=== PATIENT | male | born 1975 | race Two or more races ===

== ENCOUNTER 2017-05-21 09:32 | Emergency (ER) | payer MEDICARE, OTHER ==
[~2017-05-21] VITALS: Ht 182.9 cm; Wt 96.6 kg
[2017-05-21] MEDS ORDERED: LANTUS SOL100 UNIT/1 SUBQ (09:51)
[2017-05-21] MEDS ORDERED: FLUCONAZOLE100 MG ORAL (09:51)
[2017-05-21] MEDS ORDERED: NORCO 10-325 T1 EACH ORAL (09:51)
[2017-05-21] MEDS ORDERED: MIRALAX17 G2 ORAL (09:51)
[2017-05-21] MEDS ORDERED: BACTRIM-DS1 EA ORAL (09:51)
[2017-05-21] MEDS ORDERED: AUGMENTIN 875-1 EAC1 ORAL (09:51)
[2017-05-21] MEDS ORDERED: NOVOLOG100 UNITS1 (09:51)
[2017-05-21 10:16] LABS: BASOPHILS % (AUTO) 1.2 % (0.0-2.0); EOSINOPHILS % (AUTO) 2.1 % (0.0-3.0); HEMATOCRIT 42.1 % (42.0-52.0); LYMPHOCYTES % (AUTO) 31.7 % (20.0-45.0); MEAN CORPUSCULAR VOLUME 85 FL (80-99); MONOCYTES % (AUTO) 7.3 % (1.0-10.0); NEUTROPHILS % (AUTO) 57.8 % (45.0-75.0); PLATELET COUNT 586 K/UL (150-450); RED BLOOD COUNT 4.95 M/UL (4.70-6.10); RED CELL DISTRIBUTION WIDTH 14.4 % (11.6-14.8)
[2017-05-21 10:24] LABS: ANION GAP 8 mmol/L (5-15); BLOOD UREA NITROGEN 17 mg/dL (7-18); CALCIUM 8.9 MG/DL (8.5-10.1); CARBON DIOXIDE 25 MMOL/L (21-32); CHLORIDE 98 MMOL/L (98-107); POTASSIUM 4.5 MMOL/L (3.5-5.1); SODIUM 131 MMOL/L (136-145)
[2017-05-21 10:28] LABS: ALANINE AMINOTRANSFERASE 42 U/L (12-78); ALBUMIN 2.9 G/DL (3.4-5.0); ALBUMIN/GLOBULIN RATIO 0.5 (1.0-2.7); ALKALINE PHOSPHATASE 82 U/L (46-116); ASPARTATE AMINO TRANSFERASE 23 U/L (15-37); BILIRUBIN,TOTAL 0.1 MG/DL (0.2-1.0)
[2017-05-21 10:33] LABS: APPEARANCE,URINE CLEAR; BILIRUBIN, URINE NEGATIVE (NEGATIVE); COLOR,URINE PALE YELLOW; GLUCOSE, URINE (UA) 1+ (NEGATIVE); KETONES,URINE NEGATIVE (NEGATIVE); LEUKOCYTE ESTERASE ,URINE NEGATIVE (NEGATIVE); NITRITE,URINE NEGATIVE (NEGATIVE); PH,URINE 6 (4.5-8.0); PROTEIN,URINE 3+ (NEGATIVE); UROBILINOGEN,URINE NORMAL MG/DL (0.0-1.0)
[2017-05-21 10:48] VITALS: BP 138/87
[2017-05-21] MEDS ORDERED: ONDANSETRON ODT4 MG ORAL (10:49)
--- NOTE | 2017-05-21 11:09 | Emergency Room Report ---
History of Present Illness General Chief Complaint: General Complaint Source: Patient Present Illness HPI 41-year-old male, history of scrotal abscess that was drained, now with suprapubic cath, placed one week ago, presenting with nausea, and redness around his suprapubic catheter. States that he has a followup visit in one week. Has nausea no vomiting. Has still been able to eat and drink. Staying at transitional housing after being hospitalized. No diarrhea. No abdominal pain. Allergies: Coded Allergies: No Known Allergies (Unverified , 05/21/17) Patient History Past Medical History: see triage record Past Surgical History: none Pertinent Family History: none Reviewed Nursing Documentation: PMH: Agreed, PSxH: Agreed Nursing Documentation-PMH Hx Diabetes: Yes Review of Systems All Other Systems: negative except mentioned in HPI Physical Exam Vital Signs Date Time Temp Pulse Resp B/P (MAP) Pulse Ox O2 Delivery O2 Flow Rate FiO2 05/21/17 09:36 98.0 120 18 141/80 97 Room Air 98.1 Sp02 EP Interpretation: reviewed, normal General Appearance: normal inspection, well appearing, no apparent distress, alert, GCS 15, non-toxic Head: normocephalic, atraumatic Eyes: bilateral eye normal inspection, bilateral eye PERRL, bilateral eye EOMI ENT: normal ENT inspection, normal pharynx, normal voice, moist mucus membranes Neck: normal inspection, full range of motion, supple Respiratory: normal inspection, lungs clear, normal breath sounds, no respiratory distress, no retraction, no wheezing, speaking full sentences, chest symmetrical Cardiovascular #1: normal inspection, regular rate, rhythm, normal capillary refill Cardiovascular #2: 2+ radial (R), 2+ radial (L) Gastrointestinal: soft, non-distended, no guarding, other - suprapubic cath stiched in place, not obstructed, clear urine, mild redness around site no purulent drainage. nontender abdomen throughout Musculoskeletal: normal inspection, back normal, normal range of motion, non- tender Neurologic: normal inspection, alert, oriented x3, responsive, motor strength/ tone normal, sensory intact, normal gait, speech normal Psychiatric: normal inspection, judgement/insight normal, memory normal Skin: normal inspection, normal color, no rash, warm/dry, well hydrated, normal turgor Medical Decision Making Diagnostic Impression: Primary Impression: Suprapubic catheter Additional Impression: Nausea ER Course 41-year-old male with nausea DDX: Gastroenteritis, UTI, DKA The patient's abdomen is very soft nontender at this time, suprapubic catheter site does not appear infected Plan: Obtain labs, ua, IV fluids ER course: Patient has remained stable during ED stay. Received Zofran and IV fluids. Repeat abdominal exam is nontender. She appears nontoxic. His vital signs are normal Patient's UA is positive, already on antibiotics Disposition: Patient is to be discharged to home. Patient is instructed to follow up with urologist within 3 days. Strict return precautions discussed with patient such as fever, chills, worsening/severe pain, chest pain, SOB, nausea, vomiting, which may indicate severe illness. Patient verbalizes understanding and agrees with plan. Please note that this Emergency Department Report was dictated using [employer] plasterer technology software, occasionally this can lead to erroneous entry secondary to interpretation by the dictation equipment Last Vital Signs Date Time Temp Pulse Resp B/P (MAP) Pulse Ox O2 Delivery O2 Flow Rate FiO2 05/21/17 10:48 97 25 138/87 95 Room Air 05/21/17 09:36 98.0 98.1 Disposition: HOME, SELF-CARE Condition: Improved Scripts Ondansetron Odt* (ZOFRAN ODT*) 4 Mg Tab.rapdis 4 MG ORAL EVERY 8 HOURS, #10 TAB 0 Refills Prov: Camille Mcclure M.D. 05/21/17 Referrals: NON PHYSICIAN (PCP) Patient Instructions: Nausea, Adult, [id number], Suprapubic Catheter Home Guide Additional Instructions: PLEASE FOLLOW UP WITH YOUR UROLOGIST IN 1 WEEK WITHOUT FAIL Camille Mcclure M.D. May 21, 2017 11:09
[2017-05-21 11:21] VITALS: BP 143/92
== END 2017-05-21 11:18 | disposition home or self-care (01) ==
LOC: EDBD 09:32 → EMR 09:35
DX: R11.0 Nausea (principal); E11.9 Type 2 diabetes mellitus without complications; Z46.6 Encounter for fitting and adjustment of urinary device
CPT/HCPCS: 36415; 80053; 81003; 83690; 85025; 96374; 96375; 99284; J2405

== ENCOUNTER 2017-06-05 12:45 | Emergency (ER) | payer MEDICARE, OTHER ==
[~2017-06-05] VITALS: Ht 182.9 cm; Wt 105.2 kg
[~2017-06-05 12:45] MED LIST: AUGMENTIN 875-1 EAC1 ORAL; BACTRIM-DS1 EA ORAL; FLUCONAZOLE100 MG ORAL; LANTUS SOL100 UNIT/1 SUBQ; MIRALAX17 G2 ORAL; NORCO 10-325 T1 EACH ORAL; NOVOLOG100 UNITS1; ONDANSETRON ODT4 MG ORAL
[2017-06-05 13:07] VITALS: BP 139/81
[2017-06-05] MEDS ORDERED: Heparin Sod 1000 units/ml 10ml INJ ONE (13:15)
[2017-06-05] MEDS ORDERED: Lidocaine 1% MPF 10mg/ml 5ml INJ ONE (13:15)
--- NOTE | 2017-06-05 14:15 | Emergency Room Report ---
History of Present Illness General Chief Complaint: General Complaint Source: Patient, Medical Record, EMS Present Illness HPI 41 yo male patient presents to ER BIB ambulance for PICC line placement. Patient was sent from [facility] for placement. Patient being treated for UTI. Patient reports he was provided with pain medication prior to leaving [facility]. Patient denies chest pain, SOB, abdominal pain. Patient has history of diverticulum of bladder, major depressive disorder, spina bifida, and Type 1 diabetes. Allergies: Coded Allergies: No Known Allergies (Unverified , 05/21/17) Patient History Past Medical History: see triage record Reviewed Nursing Documentation: PMH: Agreed, PSxH: Agreed Nursing Documentation-PMH Past Medical History: No History, Except For Hx Diabetes: Yes Review of Systems All Other Systems: negative except mentioned in HPI Physical Exam Vital Signs Date Time Temp Pulse Resp B/P (MAP) Pulse Ox O2 Delivery O2 Flow Rate FiO2 06/05/17 12:57 97.7 108 18 139/81 94 Room Air 97.7 Sp02 EP Interpretation: reviewed, normal General Appearance: well appearing, no apparent distress, alert, GCS 15 Head: normocephalic, atraumatic Eyes: bilateral eye normal inspection, bilateral eye PERRL ENT: hearing grossly normal, normal pharynx, no angioedema, normal voice, uvula midline, moist mucus membranes Neck: full range of motion Respiratory: lungs clear, normal breath sounds, no rhonchi, no respiratory distress, no accessory muscle use, no wheezing, speaking full sentences Cardiovascular #1: regular rate, rhythm Gastrointestinal: non tender, soft, no mass, non-distended, no guarding, no rebound Genitourinary: no CVA tenderness, other - lopez catheter Musculoskeletal: back normal, digits/nails normal, gait/station normal, normal range of motion, non-tender Neurologic: alert, oriented x3, responsive, motor strength/tone normal, sensory intact Psychiatric: mood/affect normal Skin: no rash Lymphatic: no adenopathy Medical Decision Making PA Attestation Dr. Honeycutt is my supervising Physician whom patient management has been discussed with. Diagnostic Impression: Primary Impression: Needs peripherally inserted central catheter (PICC) ER Course Pt. presents to the ED BIB needing PICC line. Patient being treated for UTI at [facility]. Vital signs: are WNL, pt. is afebrile Dr. Honeycutt ordered PICC line and meds for procedure. PE benign. Patient taken by Radiology. PICC line placed in left arm. Patient tolerated procedure well. Patient stable for discharge to care center. Ambulance called to transport patient. DISCHARGE: Patient discharged to care center. Patient is resting comfortably, in no acute distress, nontoxic appearing, talking without difficulty. Will provide with patient care instructions and any necessary prescriptions. Care plan and follow-up instructions provided. Patient questions asked and answered. ER precautions given. Patient instructed to return to ER immediately for any new or worsening of symptoms including but not limited to increasing SOB, persistent fever. Last Vital Signs Date Time Temp Pulse Resp B/P (MAP) Pulse Ox O2 Delivery O2 Flow Rate FiO2 06/05/17 13:07 97.7 18 139/81 94 Room Air 97.7 06/05/17 12:57 108 Disposition: ASSISTED LIVING Condition: Stable Patient Instructions: PICC Insertion, Care After Additional Instructions: Followup with primary care provider for treatment of UTI. Take medications as directed. Patient questions asked and answered. ER precautions given, patient instructed to return to ER immediately for any new or worsening of symptoms. Ramiro Stiles Jun 05, 2017 14:15
[2017-06-05] MEDS ORDERED: Heparin 2000 units/Ns 1000ml IV ONE (14:45)
--- NOTE | 2017-06-05 15:39 | Diagnostic Imaging Report ---
Indication: exterminator venous access Findings: After the indications, procedure, risks, complications, and alternatives of the procedure were explained, written informed consent was obtained. The left upper extremity was prepped with alcohol. All elements of maximal sterile barrier technique were followed including usage of a cap, mask, sterile gown, sterile gloves, hand hygiene and a large sterile sheet. Sonographic evaluation of the upper extremity was performed demonstrating a patent and compressible basilic vein. Access was obtained under real-time ultrasound guidance (with utilization of sterile gel and sterile probe cover) and digital image was saved and archived. An .018 wire was introduced. Needle exchanged for a 5 Romanian peel-away sheath. Measurements were obtained. A 5 Romanian dual-lumen Power PICC line catheter was cut to 49 cm and introduced over the wire. Peel-away sheath and wire were removed.Catheter was secured to the skin using 2-0 Prolene suture. Both ports aspirate and flush easily. Fluoroscopic images show distal tip in the superior vena cava. Total fluoroscopic time 0.4 minutes. Impression: Successful placement of an upper extremity PICC line catheter
[2017-06-05] MEDS ORDERED: TYLENOL EXTRA500 MG ORAL (15:45)
[2017-06-05] MEDS ORDERED: CEPHALEXIN500 MG ORAL (15:45)
[2017-06-05 16:29] VITALS: BP 124/81
[2017-06-05 16:30] VITALS: BP 139/81
== END 2017-06-05 16:31 | disposition home or self-care (01) ==
LOC: EDBD 12:45 → EMR 15:15
DX: N39.0 Urinary tract infection, site not specified (principal); E11.9 Type 2 diabetes mellitus without complications
CPT/HCPCS: 36569; 76937; 99284; J1644